=== PATIENT | female | born 1990 | race Hispanic/Latino ===

== ENCOUNTER → 2023-11-17 | Day surgery (SDC) | payer OTHER ==
[2023-11-17 12:03] VITALS: BP 154/89; TEMP 98.6
[2023-11-18 10:55] LABS: Hematocrit 42.4 % (36.0-47.0); Hemoglobin 13.5 g/dL (12.0-16.0); Mean Corpuscular HGB CONC 31.9 g/dL (32.0-36.0); Mean Corpuscular Hemoglobin 27.9 pg (27.0-31.0); Mean Corpuscular Volume 87.5 fl (78.0-98.0); Mean Platelet Volume 8.7 fL (7.4-10.4); Platelet Count 317 10x3/uL (130-400); RBC Distribution Width 12.3 % (11.5-14.5); Red Blood Cell (RBC) Count 4.85 mill/uL (4.20-5.40); White Blood Cell (WBC) Count 11.7 10x3/uL (4.8-10.8)
[2023-11-18 11:42] LABS: ALT (SGPT) 70 U/L (8-55); AST (SGOT) 35 U/L (5-34); Albumin 2.8 g/dL (3.5-5.0); Alkaline Phosphatase 78 U/L (40-110); Anion Gap 16 mmol/L (10-20); BUN (Urea Nitrogen) 9 mg/dL (7.0-18.7); Bilirubin, Total 0.4 mg/dL (0.2-1.2); Calc. Creatinine Clearance 0 mL/min (70-130); Carbon Dioxide 19 mmol/L (22-29); Chloride 107 mmol/L (98-107); Estimated GFR 117; Globulin 3.7 g/dL (2.4-3.5); Glucose 86 mg/dL (70-105); Potassium 4.7 mmol/L (3.5-5.1); Protein, Total 6.5 g/dL (6.0-8.3); Sodium 137 mmol/L (136-145)
== END ==
LOC: BUR/OP 10:49
PROVIDERS: ATTEND Obstetrics & Gynecology
DX: Z49.31 Encounter for adequacy testing for hemodialysis (principal); O75.3 Other infection during labor; O98.813 Other maternal infectious and parasitic diseases complicating pregnancy, third trimester
CPT/HCPCS: 36415; 80053; 85027